=== PATIENT | male | born 1985 | race Caucasian/White ===

== ENCOUNTER 2017-02-23 13:00 | Emergency (ER) | payer BC, OTHER ==
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
[2017-02-23 13:40] VITALS: BP 158/99
== END 2017-02-23 14:02 | disposition home or self-care (01) ==
LOC: ER 13:00
DX: S00.81XA Abrasion of other part of head, initial encounter (principal); X58.XXXA Exposure to other specified factors, initial encounter; Y93.9 Activity, unspecified; Y92.9 Unspecified place or not applicable